=== PATIENT | male | born 1985 | race African-American/Black ===

== ENCOUNTER 2017-10-11 13:12 | Emergency (ER) | payer MEDICAID ==
[~2017-10-11] VITALS: Ht 195.6 cm; Wt 195.6 kg
[2017-10-11 13:14] VITALS: BP 134/79
[2017-10-11] MEDS ORDERED: PROPARACAINE OPHTH 0.5%, 15ML ONE (13:56)
[2017-10-11] MEDS ORDERED: PROPARACAINE OPHTH 0.5%, 15ML EACHEYE ONE (14:00)
[2017-10-11] MEDS ORDERED: FLUORESCEIN OPHTHALMIC 1 MG STRIP EACHEYE ONE (14:00)
== END 2017-10-11 15:10 | disposition home or self-care (01) ==
LOC: ED 14:00
DX: H10.022 Other mucopurulent conjunctivitis, left eye (principal); F17.200 Nicotine dependence, unspecified, uncomplicated; J45.909 Unspecified asthma, uncomplicated
CPT/HCPCS: 99283